=== PATIENT | female | born 1965 | race Caucasian/White ===

== ENCOUNTER 2016-05-03 13:31 | Emergency (ER) | payer OTHER ==
[2016-05-03 14:58] LABS: BASOPHIL 0.5 % (0-2); HCT 44.4 % (37.0-47.0); HGB 15.2 g/dl (12.5-16.0); LYMPHOCYTE 35.8 % (15-48); MCH 28.8 pg (25.0-31.0); MCHC 34.2 g/dL (32.0-36.0); MCV 84.1 fL (78.0-100.0); MONOCYTE 5.9 % (0-12); MPV 10.9 fL (6.0-9.5); NEUTROPHIL 50.8 % (41-80); PLT 275 K/uL (150-400); RBC 5.28 M/uL (4.20-5.40); WBC 12.2 K/uL (4.0-10.5)
[2016-05-03 14:58] LABS: BILIRUBIN NEGATIVE (NEGATIVE); BLOOD 1+ Ery/uL (NEGATIVE); CLARITY CLEAR (CLEAR); COLOR YELLOW (YELLOW); GLUCOSE (U) NORMAL (NORMAL); KETONE (U) NEGATIVE (NEGATIVE); LEUKOCYTES 3+ Leu/uL (NEGATIVE); NITRITE NEGATIVE (NEGATIVE); PROTEIN NEGATIVE (NEGATIVE); UROBILINOGEN 0.2 mg/dL (0.2-1.0); pH 5.5 (5.0-9.0)
[2016-05-03 15:03] LABS: AMORPHOUS URATES CRYSTALS TRACE; BACTERIA 2+
[2016-05-03 15:11] LABS: INR 0.96 (0.9-1.2); PROTHROMBIN TIME 12.4 SECONDS (11.7-14.0); PTT 30.5 SECONDS (23.2-31.4)
[2016-05-03 15:40] LABS: ALBUMIN 4.3 g/dL (3.5-5.0); BILIRUBIN - TOTAL 0.2 mg/dL (0.1-1.0); CREATININE 0.6 mg/dL (0.5-1.0); GLOBULIN (CALCULATION) 3.2 g/dL (2.2-4.2); POTASSIUM 3.8 mmol/L (3.5-5.1); TOTAL PROTEIN 7.5 g/dL (6.4-8.3)
== END 2016-05-03 16:22 | disposition other institution (70) ==
LOC: FER 13:31
PROVIDERS: Emergency Medicine
DX: I63.9 Cerebral infarction, unspecified (principal); R47.9 Unspecified speech disturbances; G81.90 Hemiplegia, unspecified affecting unspecified side; R29.704 NIHSS score 4; I10 Essential (primary) hypertension; J44.9 Chronic obstructive pulmonary disease, unspecified; F17.210 Nicotine dependence, cigarettes, uncomplicated; Z82.3 Family history of stroke
CPT/HCPCS: 36415; 70450; 71010; 80053; 81001; 82550; 85025; 85610; 85730; 93005